=== PATIENT | female | born 1965 | race Caucasian/White ===

== ENCOUNTER 2018-04-07 11:36 | Day surgery (SDC) | END 2018-04-07 14:51 | disposition home or self-care (01) ==

== ENCOUNTER 2018-05-18 07:49 | Day surgery (SDC) | payer BC ==
[~2018-05-18] VITALS: Ht 167.6 cm; Wt 100.7 kg
[~2018-05-18 07:49] MED LIST: FLEC50TA PO; LIDOCAINE 2% (SDV) 5 ML INJ ONE; METO-448 PO; PROPOFOL 200 MG INJ ONE; RIVA20TA5 PO
[2018-05-18 08:29] VITALS: BP 116/65; PULSE 64; RESP 18
[2018-05-18 08:30] VITALS: Ht 167.6 cm; Wt 100.7 kg
--- NOTE | 2018-05-18 08:43 | PREAC ---
Date/Time of Note Date/Time of Note DATE: 05/18/18 TIME: 08:41 Anesthesia Eval and Record Evaluation Time Pre-Procedure Interview DATE: 05/18/18 TIME: 08:41 Age 52 Sex female NPO: 8 hrs Preoperative diagnosis SCREENING Planned procedure COLONOSCOPY Past Medical History Past Medical History: Includes Cardio: Arrythmia GI: Hiatal hernia Surgery & Anesthesia Issues No known issue Meds Anticoagulation: No Beta Evelyn within 24 hr: Yes Reason Beta Evelyn not given: Pt. not on B-Evleyn Active Scripts Flecainide Acetate* (Flecainide Acetate*) 50 Mg Tab, 50 MG PO BID for 60 Days, TAB Prov:LASHELL DOWD V. [employer] 07/05/15 Reported Medications Rivaroxaban* (Xarelto*) 20 Mg Tablet, 20 MG PO DAILY 07/03/15 Metoprolol Tartrate* (Lopressor*) 25 Mg Tab, 25 MG PO DAILY 07/03/15 Meds reviewed: Yes Allergies Coded Allergies: No Known Allergy (Unverified , 07/03/15) Allergies Reviewed: Yes Labs/Studies Labs Reviewed: Reviewed by anesthesiologist test: N/A Pre-procedure Exam Last vitals Vital Signs Date Temp Pulse Resp B/P (MAP) Pulse Ox O2 O2 Flow FiO2 Time Delivery Rate 05/18/18 98.3 64 18 116/65 96 Room Air 08:29 (82) Airway: Adequate mouth opening, Adequate thyromental dist Mallampati: Mallampati II Teeth: Normal Lung: Normal Heart: Normal ASA Physical Status ASA physical status: 3 Emergency: None Planned Pain Management Parenteral pain med Pre-operative Attestations Prior to commencing anesthesia and surgery, the patient was re-evaluated, there was verification of: *The patient's identity *The results of appropriate recent lab work and preoperative vital signs *The above evaluation not changing prior to induction *Anesthetic plan, risk benefits, alternative and complications discussed with pa tient/family; questions answered; patient/family understands, accepts and wishes to proceed. RONA GREENFIELD May 18, 2018 08:43
[2018-05-18] MEDS ORDERED: PROPOFOL 60 ML ONE (08:45)
[2018-05-18] MEDS ORDERED: FENTAnyl 50 MCG/ML VIAL IV PRN (09:00)
[2018-05-18] MEDS ORDERED: LABETALOL HCL 20MG INJ IV PRN (09:00)
[2018-05-18] MEDS ORDERED: ONDANSETRON 4 MG INJ IV PRN (09:00)
[2018-05-18] MEDS ORDERED: EPHEDrine SULFATE 50 MG/5 ML SYG IV PRN (09:00)
[2018-05-18] MEDS ORDERED: hydrALAzine 20 MG INJ IV PRN (09:00)
--- NOTE | 2018-05-18 10:28 | PAC ---
Date/Time of Note Date/Time of Note DATE: 05/18/18 TIME: 10:28 Post-Anesthesia Notes Post-Anesthesia Note Last documented vital signs Vital Signs Date Temp Pulse Resp B/P (MAP) Pulse Ox O2 O2 Flow FiO2 Time Delivery Rate 05/18/18 98.3 64 18 116/65 96 Room Air 10:27 (82) Activity: WNL Respiratory function: WNL Cardiovascular function: WNL Mental status: Baseline Pain reasonably controlled: Yes Hydration appropriate: Yes Nausea/Vomiting absent: Yes RONA GREENFIELD May 18, 2018 10:28
== END 2018-05-18 10:41 | disposition home or self-care (01) ==
LOC: GIL 07:49
PROVIDERS: ATTEND Internal Medicine Gastroenterology
DX: Z12.11 Encounter for screening for malignant neoplasm of colon (principal); D12.5 Benign neoplasm of sigmoid colon; K64.8 Other hemorrhoids
CPT/HCPCS: 45380; 88305; Z7610